=== PATIENT | male | born 1990 | race African-American/Black ===

== ENCOUNTER 2019-07-06 01:23 | Emergency (ER) | payer MEDICAID ==
[~2019-07-06] VITALS: Ht 185.4 cm; Wt 79.0 kg
[2019-07-06] MEDS ORDERED: VISCOUS LIDOCAINE 2% 15 ML UDC PO STA (02:06)
[2019-07-06] MEDS ORDERED: MAGNESIUM/ALUMINUM HYDROXIDE/SIMETHICONE 30ML UDC PO STA (02:06)
[2019-07-06] MEDS ORDERED: HALOPERIDOL LACTATE 5MG/ML VIAL IM ONE (02:15)
[2019-07-06 03:03] LABS: BASOPHILS % 0.9 % (0.0-2.0); EOSINOPHILS % 3.6 % (0.0-5.0); HEMATOCRIT. 38.7 % (42.0-52.0); LYMPHOCYTES % 24.8 % (20.0-50.0); MEAN CORPUSCULAR HEMOGLOBIN 31.7 pg (28.0-32.0); MEAN CORPUSCULAR VOLUME 94.1 fL (80.0-94.0); MEAN PLATELET VOLUME 8.7 fl (7.4-10.4); MONOCYTES % 9.8 % (2.0-8.0); NEUTROPHILS % 60.9 % (40.0-76.0); PLATELET 199 x1000/uL (130-400); RED BLOOD CELL COUNT 4.11 mill/uL (4.7-6.1); RED CELL DISTRIBUTION WIDTH 12.8 % (11.6-14.6)
[2019-07-06 03:08] LABS: CHLORIDE 103 mEq/L (98-107)
[2019-07-06 03:13] LABS: ETHANOL BLOOD < 10 mg/dL
[2019-07-06 04:00] LABS: CLARITY URINE CLEAR (CLEAR); COLOR URINE YELLOW (YELLOW); KETONES URINE NEGATIVE (NEGATIVE); LEUKOCYTE ESTERASE URINE NEGATIVE (NEGATIVE); NITRITE URINE NEGATIVE (NEGATIVE); OCCULT BLOOD URINE NEGATIVE (NEGATIVE); PROTEIN URINE TRACE (NEGATIVE); SPECIFIC GRAVITY URINE 1.015 (1.005-1.030)
[2019-07-06 04:05] VITALS: BP 132/75
[2019-07-06 04:09] LABS: *AMPHETAMINES SCREEN URINE NEGATIVE (NEGATIVE); CANNABINOID URINE SCREEN PRESUMTIVE POSITIVE (NEGATIVE); METHADONE URINE SCREEN NEGATIVE (NEGATIVE); OPIATES URINE SCREEN NEGATIVE (NEGATIVE); PHENCYCLIDINE URINE SCREEN NEGATIVE (NEGATIVE)
[2019-07-06 04:10] LABS: *BARBITURATES SCREEN URINE NEGATIVE (NEGATIVE); *BENZODIAZEPINES SCREEN URINE NEGATIVE (NEGATIVE); *COCAINE SCREEN URINE NEGATIVE (NEGATIVE)
== END 2019-07-06 04:06 | disposition home or self-care (01) ==
LOC: ER 02:13
DX: R10.13 Epigastric pain (principal); F12.19 Cannabis abuse with unspecified cannabis-induced disorder; J45.909 Unspecified asthma, uncomplicated; Z88.8 Allergy status to other drugs, medicaments and biological substances
CPT/HCPCS: 36415; 80053; 80305; 80320; 81003; 83690; 85025; 93005; 96372; 99284; J1630; G0480

== ENCOUNTER 2021-06-04 05:50 | Emergency (ER) | payer MEDICAID ==
[~2021-06-04] VITALS: Ht 185.4 cm; Wt 80.0 kg
[2021-06-04 06:07] VITALS: BP 126/77
[2021-06-04] MEDS ORDERED: SULF1TAB48 PO (06:22)
[2021-06-04] MEDS ORDERED: ALBU6.7H9 INH (06:22)
[2021-06-04] MEDS ORDERED: ONDA4TAB5 PO (06:22)
== END 2021-06-04 06:41 | disposition home or self-care (01) ==
LOC: ER 05:50
DX: L98.491 Non-pressure chronic ulcer of skin of other sites limited to breakdown of skin (principal); L03.116 Cellulitis of left lower limb; L03.115 Cellulitis of right lower limb; I49.8 Other specified cardiac arrhythmias; J45.909 Unspecified asthma, uncomplicated; Z76.0 Encounter for issue of repeat prescription; Z88.8 Allergy status to other drugs, medicaments and biological substances; Z98.890 Other specified postprocedural states
CPT/HCPCS: 93005; 99283

== ENCOUNTER 2021-07-19 02:58 | Emergency (ER) | payer MEDICAID ==
[~2021-07-19] VITALS: Ht 188 cm; Wt 84.0 kg
[~2021-07-19 02:58] MED LIST: ALBU6.7H9 INH; ONDA4TAB5 PO; SULF1TAB48 PO
[2021-07-19] MEDS ORDERED: ACETAMINOPHEN 325MG TABLET PO ONE (04:00)
[2021-07-19 04:15] VITALS: BP 121/79
== END 2021-07-19 04:17 | disposition home or self-care (01) ==
LOC: ER 02:58
DX: S61.216A Laceration without foreign body of right little finger without damage to nail, initial encounter (principal); S51.011A Laceration without foreign body of right elbow, initial encounter; J45.909 Unspecified asthma, uncomplicated; W25.XXXA Contact with sharp glass, initial encounter; Y93.9 Activity, unspecified; Y92.9 Unspecified place or not applicable; Z88.8 Allergy status to other drugs, medicaments and biological substances
CPT/HCPCS: 12001; 99282; Z7610

== ENCOUNTER 2021-07-24 15:00 | Emergency (ER) | payer MEDICAID ==
[~2021-07-24] VITALS: Ht 188 cm; Wt 79.0 kg
[2021-07-24 15:06] VITALS: BP 162/81
[2021-07-24] MEDS ORDERED: IBUP-2030 MT (16:02)
== END 2021-07-24 16:23 | disposition home or self-care (01) ==
LOC: ER 15:00
DX: S63.698A Other sprain of other finger, initial encounter (principal); Y35.893A Legal intervention involving other specified means, suspect injured, initial encounter; Y93.89 Activity, other specified; Y92.9 Unspecified place or not applicable; J45.909 Unspecified asthma, uncomplicated; Z88.8 Allergy status to other drugs, medicaments and biological substances
CPT/HCPCS: 73130; 99283

== ENCOUNTER 2021-08-05 03:43 | Emergency (ER) | payer MEDICAID ==
[~2021-08-05] VITALS: Ht 188 cm; Wt 75.2 kg
[~2021-08-05 03:43] MED LIST changes: +IBUP-2030 MT
[2021-08-05 03:58] VITALS: BP 124/77
[2021-08-05] MEDS ORDERED: BACITRACIN ZINC OINT UDPKT TOP ONE (04:15)
[2021-08-05] MEDS ORDERED: TETANUS, DIPHTHERIA, PERTUSSIS VAC/PF 0.5ML (>10YR OLD) IM ONE (04:15)
[2021-08-05] MEDS ORDERED: HYDROCODONE/ACETAMINOPHEN 5/325MG TABLET PO ONE (04:15)
[2021-08-05] MEDS ORDERED: DOXY100C5 MT (04:43)
[2021-08-05] MEDS ORDERED: BO1 TP (04:43)
== END 2021-08-05 05:19 | disposition home or self-care (01) ==
LOC: ER 04:18
DX: S61.451A Open bite of right hand, initial encounter (principal); F12.10 Cannabis abuse, uncomplicated; J45.909 Unspecified asthma, uncomplicated; Z88.1 Allergy status to other antibiotic agents; W54.0XXA Bitten by dog, initial encounter; Y93.89 Activity, other specified; Y92.89 Other specified places as the place of occurrence of the external cause; Y99.8 Other external cause status
CPT/HCPCS: 29130; 73130; 99283; Z7610

== ENCOUNTER 2021-09-22 21:06 | Emergency (ER) | payer MEDICAID ==
[~2021-09-22] VITALS: Ht 188 cm; Wt 82.0 kg
[~2021-09-22 21:06] MED LIST changes: +BO1 TP; +DOXY100C5 MT
[2021-09-22] MEDS ORDERED: ALBU90AE INH (22:09)
[2021-09-22 22:13] VITALS: BP 118/85
== END 2021-09-22 22:15 | disposition home or self-care (01) ==
LOC: ER 21:06
DX: Z76.0 Encounter for issue of repeat prescription (principal); J45.909 Unspecified asthma, uncomplicated
CPT/HCPCS: 99282

== ENCOUNTER 2021-11-13 09:57 | Emergency (ER) | payer MEDICAID ==
[~2021-11-13] VITALS: Ht 182.9 cm; Wt 80.0 kg
[~2021-11-13 09:57] MED LIST changes: +ALBU90AE INH
[2021-11-13 10:32] VITALS: BP 116/68
== END 2021-11-13 13:49 | disposition home or self-care (01) ==
LOC: ER 09:57
DX: Z04.3 Encounter for examination and observation following other accident (principal); J45.909 Unspecified asthma, uncomplicated; W01.0XXA Fall on same level from slipping, tripping and stumbling without subsequent striking against object, initial encounter; Y93.89 Activity, other specified; Y92.9 Unspecified place or not applicable; Z88.8 Allergy status to other drugs, medicaments and biological substances
CPT/HCPCS: 73120; 99283

== ENCOUNTER 2022-04-25 15:13 | Emergency (ER) | payer MEDICAID ==
[~2022-04-25] VITALS: Ht 188 cm; Wt 80.0 kg
[2022-04-25 15:21] VITALS: BP 136/75
[2022-04-25] MEDS ORDERED: METHOCARBAMOL 750MG TABLET PO SCH (20:30)
[2022-04-25] MEDS ORDERED: ACETAMINOPHEN 325MG TABLET PO ONE (20:30)
[2022-04-25] MEDS ORDERED: KETOROLAC 60MG/2ML VIAL IM ONE (20:30)
[2022-04-25] MEDS ORDERED: LIDOCAINE 5% PATCH TOP SCH (21:40)
[2022-04-25] MEDS ORDERED: IBUP-2028 MT (21:47)
[2022-04-25] MEDS ORDERED: METH-653 MT (21:47)
[2022-04-25] MEDS ORDERED: LIDO1ADH23 TP (21:47)
[2022-04-25] MEDS ORDERED: TOPUD PO (21:47)
[2022-04-26] MEDS ORDERED: LIDOCAINE 5% PATCH TOP SCH (09:00)
== END 2022-04-25 21:45 | disposition home or self-care (01) ==
LOC: ER 15:25
DX: M54.50 Low back pain, unspecified (principal); J45.909 Unspecified asthma, uncomplicated; Z88.8 Allergy status to other drugs, medicaments and biological substances; Z98.890 Other specified postprocedural states
CPT/HCPCS: 72070; 72100; 96372; 99284; J1885

== ENCOUNTER 2022-06-21 15:19 | Emergency (ER) | payer MEDICAID ==
[~2022-06-21] VITALS: Ht 188 cm; Wt 79.0 kg
[~2022-06-21 15:19] MED LIST changes: +ALBU6.7H3 INH; -ALBU6.7H9 INH; +IBUP-2028 MT; +LIDO1ADH23 TP; +METH-653 MT; +TOPUD PO
[2022-06-21] MEDS ORDERED: SULFAMETHOXAZOLE/TRIMETHOPRIM 800/160MG TABLET PO ONE (18:45)
[2022-06-21] MEDS ORDERED: LIDOCAINE HCL 1% 20ML VIAL (Pyxis) INJ INFIL ONE (18:45)
[2022-06-21] MEDS ORDERED: ACETAMINOPHEN 325MG TABLET PO ONE (18:45)
[2022-06-21] MEDS ORDERED: SULF1TAB48 MT (18:55)
[2022-06-21] MEDS ORDERED: IBUP-2029 MT (18:55)
[2022-06-21 20:15] VITALS: BP 120/69
== END 2022-06-21 18:26 | disposition home or self-care (01) ==
LOC: ER 15:19
DX: L03.314 Cellulitis of groin (principal); Z00.00 Encounter for general adult medical examination without abnormal findings; J45.909 Unspecified asthma, uncomplicated; Z79.899 Other long term (current) drug therapy; F12.10 Cannabis abuse, uncomplicated
CPT/HCPCS: 10060; 99283

== ENCOUNTER 2023-02-27 23:16 | Emergency (ER) | payer MEDICAID ==
[~2023-02-27] VITALS: Ht 186.7 cm; Wt 79.5 kg
[~2023-02-27 23:16] MED LIST changes: +IBUP-2029 MT; +SULF1TAB48 MT
[2023-02-27 23:27] VITALS: BP 107/75; O2SAT 96
[2023-02-28] MEDS ORDERED: IBUPROFEN 600MG TABLET PO NR (02:45)
[2023-02-28 03:15] VITALS: PULSE 76; RESP 17; TEMP 98.2
== END 2023-02-28 03:15 | disposition home or self-care (01) ==
LOC: ER 23:16
DX: M79.642 Pain in left hand (principal); J45.909 Unspecified asthma, uncomplicated; F12.10 Cannabis abuse, uncomplicated
CPT/HCPCS: 71045; 73130; 99284; A4565

== ENCOUNTER 2023-08-09 02:41 | Emergency (ER) | payer MEDICAID ==
[~2023-08-09] VITALS: Ht 188 cm; Wt 80.5 kg
[2023-08-09 03:16] VITALS: O2SAT 100
[2023-08-09] MEDS ORDERED: NAPR-681 MT (03:20)
[2023-08-09] MEDS ORDERED: KETOROLAC 60MG/2ML VIAL IM ONE (03:30)
[2023-08-09] MEDS ORDERED: ACETAMINOPHEN 325MG TABLET PO ONE (03:30)
[2023-08-09 03:44] VITALS: BP 132/75; PULSE 75; RESP 16; TEMP 98
== END 2023-08-09 03:45 | disposition home or self-care (01) ==
LOC: ER 02:41
DX: R68.84 Jaw pain (principal); J45.909 Unspecified asthma, uncomplicated; F12.10 Cannabis abuse, uncomplicated; Z79.899 Other long term (current) drug therapy
CPT/HCPCS: 99283; 96372; J1885

== ENCOUNTER 2024-08-05 02:16 | Emergency (ER) | payer OTHER, MEDICAID ==
[~2024-08-05] VITALS: Ht 182.9 cm; Wt 80.0 kg
[~2024-08-05 02:16] MED LIST changes: +NAPR-681 MT
[2024-08-05 03:36] VITALS: O2SAT 99
[2024-08-05 04:28] LABS: CHLORIDE 107 mEq/L (98-107); POTASSIUM 3.4 mEq/L (3.5-5.1); SODIUM 139 mEq/L (136-145)
[2024-08-05 04:29] LABS: CARBON DIOXIDE 25 mEq/L (21-32)
[2024-08-05 04:30] LABS: CALCIUM 9.7 mg/dL (8.7-10.4)
[2024-08-05 04:34] LABS: CREATININE 1.1 mg/dL (0.6-1.3); GLUCOSE 111 mg/dL (70-105); UREA NITROGEN BLOOD 14 mg/dL (9-23)
[2024-08-05 05:28] LABS: HEMATOCRIT. 40.5 % (42.0-52.0); HEMOGLOBIN. 13.7 g/dL (14.0-18.0); MEAN CORPUSCULAR HEMOGLOBIN 32.2 pg (28.0-32.0); MEAN CORPUSCULAR HGB CONC 33.7 g/dL (31.0-37.0); MEAN CORPUSCULAR VOLUME 95.6 fL (80.0-94.0); MEAN PLATELET VOLUME 9.1 fl (7.4-10.4); PLATELET 215 x1000/uL (130-400); RED BLOOD CELL COUNT 4.24 mill/uL (4.7-6.1); RED CELL DISTRIBUTION WIDTH 12.7 % (11.6-14.6); WHITE BLOOD COUNT 11.5 x1000/uL (4.5-11.0)
[2024-08-05] MEDS: SODIUM CHLORIDE 0.9% 1,000 ML IV ONE (05:33)
[2024-08-05 05:41] LABS: DIFFERENTIAL COMMENT 1
[2024-08-05] MEDS: KETOROLAC 15MG/ML VIAL IV ONE ×2 (05:54→08:21)
[2024-08-05] MEDS: GUAIFENESIN 600MG ER TABLET PO SCH (06:05)
[2024-08-05 06:37] LABS: CLARITY URINE CLEAR (CLEAR); COLOR URINE YELLOW (YELLOW); GLUCOSE URINE NEGATIVE (NEGATIVE); KETONES URINE TRACE (NEGATIVE); LEUKOCYTE ESTERASE URINE NEGATIVE (NEGATIVE); NITRITE URINE NEGATIVE (NEGATIVE); OCCULT BLOOD URINE NEGATIVE (NEGATIVE); PH URINE >=9.0 (4.5-8.0); PROTEIN URINE TRACE (NEGATIVE); SPECIFIC GRAVITY URINE 1.019 (1.005-1.030)
[2024-08-05] MEDS ORDERED: IOHEXOL-300 100 ML BOTTLE ONE (07:31)
[2024-08-05 07:39] LABS: ATYPICAL LYMPHOCYTES 1; PLATELET ESTIMATE NORMAL
[2024-08-05] MEDS ORDERED: NAPR-1074 MT (07:50)
[2024-08-05] MEDS ORDERED: ONDA4TAB50 MT (07:50)
[2024-08-05 08:22] LABS: SQUAMOUS EPITHELIAL CELL URINE RARE /lpf (RARE/1+)
[2024-08-05 08:25] LABS: BACTERIA URINE TRACE; RBC URINE NONE SEEN /hpf (0-2); WBC URINE 0-2 /hpf (0-2)
[2024-08-05 08:35] VITALS: BP 128/74; PULSE 72; RESP 20; TEMP 37.05852; O2SAT 99
== END 2024-08-05 07:36 | disposition home or self-care (01) ==
LOC: ER 02:16
DX: B34.9 Viral infection, unspecified (principal); R11.2 Nausea with vomiting, unspecified; F12.10 Cannabis abuse, uncomplicated; R05.9 Cough, unspecified; Z79.1 Long term (current) use of non-steroidal anti-inflammatories (NSAID); Z88.1 Allergy status to other antibiotic agents; Z79.899 Other long term (current) drug therapy
CPT/HCPCS: 80048; 81003; 83690; 85025; 36415; 71045; 74177; 93005; 96374; 96376; 99285; Q9967; J1885; J7030; Z7610 ×2

== ENCOUNTER 2025-01-16 12:58 | Emergency (ER) | payer MEDICAID, OTHER ==
[~2025-01-16] VITALS: Ht 188 cm; Wt 80.0 kg
[~2025-01-16 12:58] MED LIST changes: +NAPR-1074 MT; +ONDA4TAB50 MT
[2025-01-16 13:08] VITALS: O2SAT 100
[2025-01-16] MEDS: TETRACAINE 0.5% OPHTH DROPS 4ML BOTHEYE ONE (14:44)
[2025-01-16] MEDS: FLUORESCEIN SODIUM 1MG/STRIP BOTHEYE ONE (14:44)
[2025-01-16] MEDS ORDERED: IBUP-2029 MT (15:03)
[2025-01-16] MEDS ORDERED: DEXT30DR5 EACHEYE (15:03)
[2025-01-16] MEDS ORDERED: OCUFLX EACHEYE (15:03)
[2025-01-16 15:13] VITALS: BP 118/80; PULSE 78; RESP 14; TEMP 36.8; O2SAT 100
== END 2025-01-16 15:17 | disposition home or self-care (01) ==
LOC: ER 12:58
DX: H10.89 Other conjunctivitis (principal); Z79.1 Long term (current) use of non-steroidal anti-inflammatories (NSAID); Z88.1 Allergy status to other antibiotic agents; Z79.899 Other long term (current) drug therapy
CPT/HCPCS: 99283

== ENCOUNTER 2025-06-11 02:19 | Emergency (ER) | payer MEDICAID ==
[~2025-06-11] VITALS: Ht 182.9 cm; Wt 84.0 kg
[~2025-06-11 02:19] MED LIST changes: +DEXT30DR5 EACHEYE; +IBUP-1455 MT; -IBUP-2029 MT; +OCUFLX EACHEYE
[2025-06-11] MEDS ORDERED: IBUP-1455 MT (05:29)
[2025-06-11] MEDS ORDERED: ALBU18HF2 IH (05:29)
[2025-06-11] MEDS ORDERED: LIDO700A30 TP (05:29)
[2025-06-11] MEDS ORDERED: SULF1TAB48 MT (05:29)
[2025-06-11] MEDS: LIDOCAINE 5% PATCH TOP STA (05:35)
[2025-06-11] MEDS: DEXAMETHASONE 4MG TABLET PO ONE (05:41)
[2025-06-11] MEDS: KETOROLAC 15MG/ML VIAL IM ONE (05:46)
[2025-06-11] MEDS: IPRATROPIUM BROMIDE (0.02%) 0.5MG/2.5ML NEB HHN ONE (05:59)
[2025-06-11] MEDS: ALBUTEROL (0.083%) 2.5MG/3ML NEB HHN ONE (05:59)
[2025-06-11 06:00] VITALS: PULSE 64; RESP 16; O2SAT 99
[2025-06-11 08:55] LABS: CLARITY URINE CLEAR (CLEAR); COLOR URINE YELLOW (YELLOW); GLUCOSE URINE NEGATIVE (NEGATIVE); KETONES URINE NEGATIVE (NEGATIVE); LEUKOCYTE ESTERASE URINE NEGATIVE (NEGATIVE); NITRITE URINE NEGATIVE (NEGATIVE); OCCULT BLOOD URINE NEGATIVE (NEGATIVE); PH URINE 5.5 (4.5-8.0); PROTEIN URINE NEGATIVE (NEGATIVE); SPECIFIC GRAVITY URINE 1.019 (1.005-1.030); UROBILINOGEN URINE 0.2 E.U./dL (0.2-1.0)
[2025-06-11 09:23] VITALS: BP 125/85; PULSE 71; RESP 17; TEMP 36.3; O2SAT 99
== END 2025-06-11 09:24 | disposition home or self-care (01) ==
LOC: ER 02:19
DX: J06.9 Acute upper respiratory infection, unspecified (principal); B97.89 Other viral agents as the cause of diseases classified elsewhere; L02.412 Cutaneous abscess of left axilla; J45.901 Unspecified asthma with (acute) exacerbation; Z88.1 Allergy status to other antibiotic agents
CPT/HCPCS: 81003; 71045; 94640; 96372; 99284; J8540; J1885; Z7610 ×2; 94070; 94664; 98960